=== PATIENT | female | born 1955 | race Hispanic/Latino ===

== ENCOUNTER 2018-08-05 09:32 | Outpatient (CLI) | payer OTHER ==
--- NOTE | 2018-08-05 13:03 | MRI ---
MRI OF THE LEFT KNEE WITHOUT CONTRAST: INDICATION: Internal derangement of the left knee radiographs dated 07/10/2018. FINDINGS: As seen on the comparison examination is moderate degenerative arthrosis involving the left knee pred ominantly affecting the medial femorotibial and patellofemoral compartments. There is a complex dege nerative tear involving the body and posterior horn of the medial meniscus with a predominantly horiz ontal component. There is partial extrusion of the medial meniscus. There is a disk with lateral me niscus without evidence of discrete tear. The ACL, PCL, MC, and LCLCL are intact. There are mild va ricosities involving the soft tissues of the lateral knee. No joint effusion or popliteal cyst is ev ident. The extensor mechanism is intact. IMPRESSION: 1. Mild to moderate osteoarthrosis of the left knee. 2. Medial meniscal tear. 3. Discoid lateral meniscus without evidence of tear. 4. Mildly prominent varicosities in the lateral aspect of the left knee. POS: OFF
== END 2018-08-05 09:33 | disposition home or self-care (01) ==
LOC: SCSMRI 09:32
PROVIDERS: ATTEND Family Medicine
DX: M23.92 Unspecified internal derangement of left knee (principal); M17.12 Unilateral primary osteoarthritis, left knee; S83.242A Other tear of medial meniscus, current injury, left knee, initial encounter; I83.92 Asymptomatic varicose veins of left lower extremity

== ENCOUNTER 2019-02-13 08:30 | Inpatient (IN) | payer OTHER ==
--- NOTE | 2019-02-19 18:46 | HP ---
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 She has had progressive problems despite rest, restriction of activities, anti-inflammatory medications, use of a brace, and injections. The pain is now interfering with day-to-day activities including walking, getting dressed, and sleeping. She has been unable to return to her previous level of employment. PAST MEDICAL HISTORY: The patient has history of diabetes. She was found on preoperative laboratory studies to have an asymptomatic urinary tract infections from E. coli that has been treated with Bactrim. ROUTINE MEDICATIONS: Include 1. Low-dose aspirin. 2. Magnesium. 3. Dicyclomine. 4. Multivitamins. 5. Metformin. 6. Glipizide. 7. Ozempic. 8. Pravastatin. 9. Meloxicam. ALLERGIES: SHE HAS NO KNOWN ALLERGIES. FAMILY HISTORY: Otherwise unremarkable. SOCIAL HISTORY: Otherwise unremarkable. REVIEW OF SYSTEMS: Otherwise unremarkable. PHYSICAL EXAMINATION: GENERAL: This is a healthy female. HEENT: Unremarkable. NECK: Supple. CHEST: Clear. HEART: Regular rate and rhythm. ABDOMEN: Soft, nontender. GENITAL: Deferred. BREASTS: Deferred. EXTREMITIES: Pertinent findings of the left knee, there is puffiness. No definite effusion. There are scattered venous varicosities. There is mild varus. There is tenderness and crepitus over the medial joint line. Range of motion is 0 to 70 degrees is painful. Neurovascular exam is intact. Distal pulses are 1+. There is a left antalgic gait with crutches. Previous x-rays reveal moderate DJD with minimal joint space remaining medially. MRI scan reveals DJD and degenerative medial meniscal tear. IMPRESSION: Degenerative arthritis, left knee. PLAN: Left total knee replacement. The nature of the surgery, length of recovery, and potential complications such as infection, loss of motion, incomplete relief, delayed wound healing, neurovascular injury, thromboembolic phenomena, possible transfusion, and need for revision have been discussed in detail. Job ID: [id number]
[2019-02-24] MEDS ORDERED: Sodium Chloride 0.9% 100 ML ONE (06:56)
[2019-02-24] MEDS ORDERED: Tranexamic Acid 1,000 MG/10 ML VIAL ONE ×2 (06:56→11:48)
[2019-02-24] MEDS ORDERED: Fentanyl 100 MCG/2 ML VIAL ONE ×5 (07:54→12:36)
[2019-02-24] MEDS ORDERED: Lidocaine 1% (PF) 30 ML VIAL ONE (07:54)
[2019-02-24] MEDS ORDERED: Midazolam HCl 2 mg/2 ml Vial ONE ×2 (07:54→09:49)
[2019-02-24] MEDS ORDERED: Ondansetron PF 4 MG/2 ML Vial ONE (08:12)
[2019-02-24] MEDS ORDERED: traMADol HCl 50 MG TAB PO PRN ×3 (08:34→14:06)
[2019-02-24] MEDS ORDERED: Promethazine HCl 25 MG/ML VIAL IM PRN ×2 (08:34→11:59)
[2019-02-24] MEDS ORDERED: Zolpidem Tartrate 5 MG TAB PO PRN ×2 (08:34→14:06)
[2019-02-24] MEDS ORDERED: Ropivacaine HCl/PF 250 ML in Premix Bag 1 BAG NERVE BLCK SCH (08:34)
[2019-02-24] MEDS ORDERED: HYDROcodone/Acetaminophen 10/325 mg Tablet PO PRN ×3 (08:34→14:06)
[2019-02-24] MEDS ORDERED: Fentanyl 100 MCG/2 ML VIAL IV PRN (08:37)
[2019-02-24] MEDS ORDERED: Bupivacaine/Epinephrine 0.25% 30 ML VIAL ONE (09:43)
[2019-02-24] MEDS ORDERED: Tranexamic Acid 1,000 MG in Sodium Chloride 0.9% 100 ML IVPB SCH ×2 (11:45→14:06)
[2019-02-24] MEDS ORDERED: Promethazine HCl 25 MG/ML VIAL SLOW IVP PRN ×2 (11:59→14:06)
[2019-02-24] MEDS ORDERED: Ondansetron HCl/PF 4 MG/2 ML Vial IVP PRN (11:59)
--- NOTE | 2019-02-24 12:14 | RAD ---
Radiograph right knee 2 views: HISTORY: 64-year-old female with osteoarthrosis of right knee. Status post surgery FINDINGS: Resurfacing changes of posterior aspect of patella, tibial plateau, and distal femur. Metallic prosth eses covered the distal femur and tibial plateau. Extensive subcutaneous gas, and gas in the joint, throughout the anterior portion of the knee and thigh. IMPRESSION: Very recently status post total right knee replacement arthroplasty.
--- NOTE | 2019-02-24 12:30 | OP ---
DATE OF PROCEDURE: 02/24/2019 CREATIVE SERVICES PRODUCER: Delfina Soto PA-C ANESTHESIA: General plus adductor canal and sciatic nerve blocks. PREOPERATIVE DIAGNOSIS: Degenerative arthritis, left knee. POSTOPERATIVE DIAGNOSIS: Degenerative arthritis, left knee. PROCEDURE PERFORMED: 1. Left total knee replacement with computer-assisted navigation with cemented [employer] Triathlon components (#2 femoral component, #2 primary tibial base plate with 9 mm CS plastic insert, and S27 all-plastic patellar component). DESCRIPTION OF PROCEDURE: After satisfactory anesthesia was induced in supine position, sequential compression device was placed on the nonoperative leg throughout the procedure. The left leg was then prepped and draped in routine sterile fashion. The leg was elevated and exsanguinated with an Esmarch bandage and the tourniquet inflated to 250 mmHg. A gently curved medial parapatellar incision was made, carried down to subcutaneous tissues and bleeding points controlled with Bovie cautery. Medial parapatellar arthrotomy was performed of the patella, this was carried laterally and portion of the fat pad were excised for exposure. There was marked degenerative arthritis of the knee, especially medially with large areas of exposed bone and significant degenerative changes of the patellofemoral joint. Meniscal remnants and osteophytes were removed. Using the [employer] pinless navigation system and the appropriate guides, the distal femoral and proximal tibial articular surfaces were excised with an oscillating saw to accept the trial components. It was felt that due to the #2 femoral component and #2 tibial base plate with 9 mm CS plastic insert gave appropriate size, fit, and stability. The patellar articular surface was excised to accept an all-plastic S27 patellar component. There was good range of motion and good patellar tracking. The trial components were removed. The knee was copiously irrigated with pulsatile lavage. The bony surfaces thoroughly cleaned and dried. The permanent components were then cemented in a single stage using one pack of cement premixed with 1 g of tobramycin powder. Excess cement was removed. There was again good fit and stability of the components. The knee was then again copiously irrigated. The skin was infiltrated with 30 mL of 0.25% Marcaine with epinephrine. The medial retinaculum and quadriceps mechanism were closed with interrupted #2 Vicryl and a running #2 Quill. Subcutaneous tissues were closed with running 0 Quill suture and the skin closed with running subcuticular 3-0 Monoderm and SurgiSeal skin adhesive. A sterile bulky compressive dressing was applied, and the tourniquet deflated after 65 minutes. The foot promptly pinked up. The patient had sequential compression device applied to the operative leg. She was awakened and taken to recovery room in stable condition. There were no apparent intraoperative complications. ESTIMATED BLOOD LOSS: Less than 100 mL. Job ID: [id number]
[2019-02-24] MEDS ORDERED: Promethazine HCl 25 MG/ML VIAL ONE (12:36)
[2019-02-24] MEDS ORDERED: Ketorolac Tromethamine 30 MG/ML VIAL IVP SCH (14:06)
[2019-02-24] MEDS ORDERED: Acetaminophen 325 MG TAB PO PRN (14:06)
[2019-02-24] MEDS ORDERED: Ondansetron PF 4 MG/2 ML Vial IVP PRN (14:06)
[2019-02-24] MEDS ORDERED: Fentanyl 100 MCG/2 ML VIAL SLOW IVP PRN ×2 (14:06)
[2019-02-24] MEDS ORDERED: diphenhydrAMINE 25 MG CAP PO PRN (14:06)
[2019-02-24 14:47] VITALS: BMI 25.9
[2019-02-24] MEDS ORDERED: Dextrose 5% in Water 1,000 ML IV PRN (15:26)
[2019-02-24] MEDS ORDERED: hydrALAZINE 20 MG/ML VIAL SLOW IVP PRN (15:26)
[2019-02-24] MEDS ORDERED: Dextrose 50% Abboject 50 ML SYRINGE SLOW IVP PRN (15:26)
[2019-02-24] MEDS: Ketorolac Tromethamine 30 MG/ML VIAL IVP SCH ×3 (15:29→23:11)
[2019-02-24] MEDS: Sodium Chloride 0.9% 1,000 ML IV SCH ×3 (15:30→23:12)
[2019-02-24] MEDS ORDERED: CEFAZOLIN 2 GM in Premix Bag 1 BAG IVPB SCH (16:00)
[2019-02-24] MEDS: metFORMIN XR 500 MG TAB PO SCH (17:24)
[2019-02-24] MEDS: CEFAZOLIN 2 GM in Premix Bag 1 BAG IVPB SCH (17:25)
[2019-02-24] MEDS ORDERED: Vancomycin HCl 1 GM in Premix Bag 1 BAG IVPB SCH ×2 (18:00→20:00)
--- NOTE | 2019-02-24 19:09 | CON ---
DATE OF CONSULTATION: PRIMARY CARE PROVIDER: Dr. Astrid Ronquillo. CHIEF COMPLAINT: Management of medical comorbidities. HISTORY OF PRESENT ILLNESS: Ms. Jacome is a pleasant 64-year-old lady, who was seen at [facility] on 02/24/2019, for management of medical comorbidities. The patient mainly speaks Kyrgyz. Family members were the translators for this clinical encounter. Ms. Jacome underwent left total knee replacement earlier today. She denies any chest pain or shortness of breath. She reports pain in the left lower extremity. She denies any nausea or vomiting. She denies any abdominal pain. She has no complaints other than pain in her left lower extremity at this time. REVIEW OF SYSTEMS: All other systems reviewed and found to be negative. PAST MEDICAL HISTORY: Diabetes mellitus type 2, gastroesophageal reflux disease, and dyslipidemia. PAST SURGICAL HISTORY: Left total knee replacement. FAMILY HISTORY: No family history of coronary artery disease. SOCIAL HISTORY: The patient denies tobacco use, alcohol use, or recreational drug use. ALLERGIES: NO KNOWN DRUG ALLERGIES. HOME MEDICATIONS: 1. Semaglutide 0.25 mg subcutaneously every 7 days. 2. Aspirin 81 mg at bedtime. 3. Glipizide 10 mg daily. 4. Metformin 500 mg 2 times a day. 5. Omeprazole 20 mg daily. 6. Pravastatin 20 mg at bedtime. 7. Tramadol p.r.n. PHYSICAL EXAMINATION: GENERAL: On examination, Ms. Jacome is awake and alert, not in acute distress. VITAL SIGNS: Blood pressure is 119/70, pulse 76, respiratory rate 20, and oxygen saturation 97% on room air. She is afebrile. EYES: No scleral icterus, no conjunctival pallor. ENT: Moist mucosal membranes. No oropharyngeal erythema or exudates. NECK: Supple, nontender, trachea is midline. RESPIRATORY: Accessory muscles of breathing are not active. Chest wall movements are symmetric bilaterally. Lungs are clear to auscultation without wheeze, rhonchi, or crepitations. CARDIOVASCULAR: S1 and S2 are heard, regular. Peripheral pulses palpable. No carotid bruit. No pericardial rub. ABDOMEN: Soft, nontender, bowel sounds are heard, no hepatomegaly, no splenomegaly. NEUROLOGIC: Cranial nerves 2 through 12 are intact. MUSCULOSKELETAL: Status post left knee surgery. The patient is able to move all 4 extremities. SKIN: No rashes or subcutaneous nodules. LYMPHATIC: No cervical lymphadenopathy. PSYCHIATRIC: Normal mood, normal affect. The patient is oriented to person, place, and time. LABORATORY DATA: Ms. Jacome's labs and investigations were reviewed. On 02/13, she had an unremarkable CBC and an unremarkable chem-7. Urinalysis was positive for moderate amount of leukocyte esterase. ASSESSMENT AND PLAN: Ms. Jacome is a pleasant 64-year-old lady, who was seen at [facility] on 02/24/2019. Her problem list includes: 1. Diabetes mellitus type 2: We will start her on Accu-Cheks and insulin sliding scale. We will adjust insulin dosing as needed. 2. Gastroesophageal reflux disease: Appears to be stable, continue omeprazole. 3. Dyslipidemia: Continue pravastatin. 4. We will add p.r.n. hydralazine for blood pressure spikes secondary to pain. Many thanks for allowing me to participate in your patient's care. Please feel free to contact me with any questions or concerns. LEVEL OF RISK: Moderate. LEVEL OF COMPLEXITY: Moderate. Job ID: [id number]
[2019-02-24] MEDS: Aspirin 81 mg Enteric Coated Tablet PO SCH (20:40)
[2019-02-24] MEDS: Atorvastatin Calcium 10 MG TAB PO SCH (20:40)
[2019-02-24] MEDS: HumaLOG 300 UNITS/3 ML VIAL SC PRN (21:25)
[2019-02-25] MEDS: CEFAZOLIN 2 GM in Premix Bag 1 BAG IVPB SCH (01:18)
[2019-02-25] MEDS ORDERED: Cepastat Lozenges 1 LOZ PO PRN (03:01)
[2019-02-25 04:11] LABS: Hemoglobin 11.3 g/dL (12.0-16.0); Mean Corpuscular HGB CONC 33.3 g/dL (32.0-36.0); Mean Corpuscular Hemoglobin 28.4 pg (27.0-31.0); Mean Platelet Volume 8.2 fL (7.4-10.4); Platelet Count 209 thou/uL (130-400); RBC Distribution Width 11.6 % (11.5-14.5); Red Blood Cell (RBC) Count 3.99 mill/uL (4.20-5.40); White Blood Cell (WBC) Count 9.6 thou/uL (4.8-10.8)
[2019-02-25] MEDS: Ketorolac Tromethamine 30 MG/ML VIAL IVP SCH ×4 (06:09→23:52)
[2019-02-25] MEDS: metFORMIN XR 500 MG TAB PO SCH ×2 (08:20→18:03)
[2019-02-25] MEDS: glipiZIDE 5 MG TAB PO SCH (08:20)
[2019-02-25] MEDS: HYDROcodone/Acetaminophen 10/325 mg Tablet PO PRN ×2 (08:24→21:31)
[2019-02-25] MEDS: Aspirin 81 mg Enteric Coated Tablet PO SCH ×2 (08:26→21:22)
[2019-02-25] MEDS: Multivitamin W/ Minerals 1 TAB PO SCH (08:27)
[2019-02-25] MEDS: Senokot S 8.6-50 MG TAB PO SCH ×2 (08:28→21:22)
[2019-02-25] MEDS: Sodium Chloride 0.9% 1,000 ML IV SCH ×2 (11:09→20:25)
[2019-02-25] MEDS: Ondansetron PF 4 MG/2 ML Vial IVP PRN (12:59)
--- NOTE | 2019-02-25 17:43 | PDOC.PN ---
- Subjective Encounter Start Date: 02/25/19 Encounter Start Time: 09:00 Pt seen for followup re: DM2. No complaints today, feels well. - Objective MAR Reviewed: Yes Vital Signs & Weight: Vital Signs (12 hours) Temp Pulse Resp BP BP Pulse Ox 02/25/19 15:40 98.1 F 82 14 124/70 92 L 02/25/19 12:30 98.2 F 89 16 118/71 94 L 02/25/19 08:00 93 L 02/25/19 07:27 98.8 F 100 16 111/67 93 L Weight Admit Weight 142 lb Weight 142 lb I&O: 02/24/19 02/25/19 02/26/19 06:59 06:59 06:59 Intake Total 3302 Output Total 2750 Balance 552 Result Diagrams: 02/25/19 03:55 Additional Labs: Accuchecks 02/25/19 02/25/19 02/25/19 15:53 11:37 06:00 POC Glucose 192 H 129 H 130 H 02/24/19 20:29 POC Glucose 174 H labs reviewed by me Phys Exam - Physical Examination Constitutional: NAD HEENT: moist MMs Neck: supple Respiratory: clear to auscultation bilateral Cardiovascular: RRR Gastrointestinal: soft s/p R knee surgery Neurological: moves all 4 limbs Psychiatric: normal affect Dx/Plan (1) DM2 (diabetes mellitus, type 2) Status: Chronic Comment: reasonable control, continue semaglutide, metformin, accuchecks and insulin sliding scale. (2) GERD (gastroesophageal reflux disease) Code(s): K21.9 - GASTRO-ESOPHAGEAL REFLUX DISEASE WITHOUT ESOPHAGITIS Status: Chronic Comment: stable, continue omeprazole (3) Dyslipidemia Code(s): E78.5 - HYPERLIPIDEMIA, UNSPECIFIED Status: Chronic Comment: stable , continue pravastatin - Plan * . Review of Systems - Review of Systems Respiratory: negative: Cough, Shortness of Breath, SOB with Excertion, Pleuritic Pain, Wheezing Cardiovascular: negative: chest pain, palpitations, orthopnea, paroxysmal nocturnal dyspnea, edema, light headedness - Medications/Allergies Allergies/Adverse Reactions: Allergies Allergy/AdvReac Type Severity Reaction Status Date / Time No Known Allergies Allergy Verified 02/13/19 09:20 Medications: Current Medications Acetaminophen (Tylenol) 650 mg PO Q4H PRN PRN Reason: Headache/Fever or Pain Hydrocodone Bitart/Acetaminophen ([place] 10/325) 1 tab PO Q4H PRN PRN Reason: Pain (1-3) Hydrocodone Bitart/Acetaminophen ([place] 10/325) 2 tab PO Q4H PRN PRN Reason: PAIN (4-6) Last Admin: 02/25/19 08:24 Dose: 2 tab Aspirin (Ecotrin) 81 mg PO BID [facility] Last Admin: 02/25/19 08:26 Dose: 81 mg Atorvastatin Calcium (Lipitor) 10 mg PO HS [facility] Last Admin: 02/24/19 20:40 Dose: 10 mg Dextrose/Water (Dextrose 50%) 25 gm SLOW IVP PRN PRN PRN Reason: Hypoglycemia Diphenhydramine HCl (Benadryl) 25 mg PO Q6H PRN PRN Reason: Itching Fentanyl (Sublimaze) 50 mcg IV Q1H PRN PRN Reason: Breakthrough Pain Last Admin: 02/24/19 15:24 Dose: 50 mcg Glipizide (Glucotrol) 10 mg PO DAILY-AC [facility] Last Admin: 02/25/19 08:20 Dose: 10 mg Glucagon (Glucagon) 1 mg IM PRN PRN PRN Reason: Hypoglycemia Hydralazine HCl (Apresoline) 10 mg SLOW IVP Q6H PRN PRN Reason: SBP Greater Than 170 Ropivacaine 250 ml/ Device 250 mls @ 0 mls/hr NERVE BLCK INF [facility] Last Admin: 02/25/19 12:54 Dose: 250 mls Sodium Chloride (Normal Saline 0.9%) 1,000 mls @ 100 mls/hr IV .Q10H [facility] Last Admin: 02/25/19 11:09 Dose: Not Given Dextrose/Water (D5w) 1,000 mls @ 0 mls/hr IV .Q0M PRN PRN Reason: Hypoglycemia Insulin Human Lispro (Humalog) 0 units SC .MILD SLIDING SCALE PRN PRN Reason: Mild Correctional Scale Last Admin: 02/24/19 21:25 Dose: 2 unit Iron/Minerals/Multivitamins (Theragran M) 1 tab PO DAILY [facility] Last Admin: 02/25/19 08:27 Dose: 1 tab Ketorolac Tromethamine (Toradol) 30 mg IVP Q6HR [facility] Stop: 02/26/19 06:01 Last Admin: 02/25/19 11:51 Dose: 30 mg Metformin HCl (Glucophage Xr) 500 mg PO BID-[facility] Last Admin: 02/25/19 08:20 Dose: 500 mg (Semaglutide [ (Ozempic] 0.25 Mg)) 0.25 mg SQ .Q7DAYS [facility] Ondansetron HCl (Zofran) 4 mg IVP Q6H PRN PRN Reason: Nausea/Vomiting Last Admin: 02/25/19 12:59 Dose: 4 mg Pantoprazole Sodium (Protonix) 40 mg PO DAILY [facility] Last Admin: 02/25/19 08:27 Dose: 40 mg Promethazine HCl (Phenergan) 12.5 mg IM Q4H PRN PRN Reason: Nausea Senna/Docusate Sodium (Senokot S) 2 tab PO BID [facility] Last Admin: 02/25/19 08:28 Dose: 2 tab Sodium Chloride (Flush - Normal Saline) 10 ml IVF PRN PRN PRN Reason: Saline Flush Last Admin: 02/25/19 13:00 Dose: 10 ml Throat Lozenges (Cepastat Lozenges) 1 nichole PO Q2H PRN PRN Reason: Sore Throat Last Admin: 02/25/19 08:29 Dose: 1 nichole Tramadol HCl (Ultram) 50 mg PO Q6H PRN PRN Reason: Mild Pain (1-3) Tramadol HCl (Ultram) 100 mg PO Q6H PRN PRN Reason: Moderate Pain 4-6 Zolpidem Tartrate (Ambien) 5 mg PO HSPRN PRN PRN Reason: Insomnia
[2019-02-25] MEDS: HumaLOG 300 UNITS/3 ML VIAL SC PRN ×2 (18:15→21:26)
[2019-02-25] MEDS: Atorvastatin Calcium 10 MG TAB PO SCH (21:22)
[2019-02-26] MEDS: Ketorolac Tromethamine 30 MG/ML VIAL IVP SCH (06:14)
[2019-02-26] MEDS: HumaLOG 300 UNITS/3 ML VIAL SC PRN ×2 (06:18→12:16)
[2019-02-26] MEDS: Sodium Chloride 0.9% 1,000 ML IV SCH (06:25)
[2019-02-26] MEDS ORDERED: Acetaminophen 500 MG TAB PO SCH (08:00)
[2019-02-26] MEDS: Ondansetron PF 4 MG/2 ML Vial IVP PRN (08:05)
[2019-02-26] MEDS: glipiZIDE 5 MG TAB PO SCH (08:22)
[2019-02-26] MEDS: Aspirin 81 mg Enteric Coated Tablet PO SCH (09:17)
[2019-02-26] MEDS: metFORMIN XR 500 MG TAB PO SCH (09:17)
[2019-02-26] MEDS: Senokot S 8.6-50 MG TAB PO SCH (09:17)
[2019-02-26] MEDS: Multivitamin W/ Minerals 1 TAB PO SCH (09:25)
[2019-02-26 11:32] VITALS: BP 145/80; TEMP 98.5
--- NOTE | 2019-02-26 13:05 | PDOC.PN ---
- Subjective Encounter Start Date: 02/26/19 Encounter Start Time: 08:00 Subjective: knee pain is better -: amb well yesterday with PT -: at bedside, no chest pain or sob - Objective MAR Reviewed: Yes Vital Signs & Weight: Vital Signs (12 hours) Temp Pulse Resp BP BP Pulse Ox 02/26/19 11:30 98.5 F 91 20 145/80 H 97 02/26/19 09:05 93 L 02/26/19 07:30 98.3 F 92 16 106/67 93 L 02/26/19 04:00 98.6 F 100 16 107/69 93 L Weight Admit Weight 142 lb Weight 142 lb I&O: 02/25/19 02/26/19 02/27/19 06:59 06:59 06:59 Intake Total 3302 1492 Output Total 2750 2450 Balance 552 -368 Result Diagrams: 02/25/19 03:55 Additional Labs: Accuchecks 02/26/19 02/25/19 02/25/19 10:57 20:21 15:53 POC Glucose 212 H 186 H 192 H Phys Exam - Physical Examination HEENT: PERRLA, moist MMs Neck: no JVD, supple Respiratory: no wheezing, no rales Cardiovascular: RRR, no significant murmur Gastrointestinal: soft, non-tender, positive bowel sounds Musculoskeletal: pulses present left knee surgical site in dressing, post op changes around knee Neurological: non-focal, moves all 4 limbs Psychiatric: normal affect, A&O x 3 Dx/Plan (1) Status post total knee replacement, left Code(s): Z96.652 - PRESENCE OF LEFT ARTIFICIAL KNEE JOINT Status: Acute (2) DM2 (diabetes mellitus, type 2) Status: Chronic Qualifiers: Diabetes mellitus intermediate card tender insulin use: without intermediate card tender use Diabetes mellitus complication status: without complication Qualified Code(s): E11.9 - Type 2 diabetes mellitus without complications (3) Dyslipidemia Code(s): E78.5 - HYPERLIPIDEMIA, UNSPECIFIED Status: Chronic Comment: stable , continue pravastatin (4) GERD (gastroesophageal reflux disease) Code(s): K21.9 - GASTRO-ESOPHAGEAL REFLUX DISEASE WITHOUT ESOPHAGITIS Status: Chronic Comment: stable, continue omeprazole - Plan hemostable -: on asp bid, metformin, glipizide, lipitor -: likely will go home today per ortho adv -: is doing well post op * . Review of Systems - Medications/Allergies Allergies/Adverse Reactions: Allergies Allergy/AdvReac Type Severity Reaction Status Date / Time No Known Allergies Allergy Verified 02/13/19 09:20 Medications: Current Medications Acetaminophen (Tylenol) 1,000 mg PO Q6H [facility] Last Admin: 02/26/19 09:25 Dose: 1,000 mg Hydrocodone Bitart/Acetaminophen ([place] 10/325) 1 tab PO Q4H PRN PRN Reason: Pain (1-3) Hydrocodone Bitart/Acetaminophen ([place] 10/325) 2 tab PO Q4H PRN PRN Reason: PAIN (4-6) Last Admin: 02/25/19 21:31 Dose: 2 tab Aspirin (Ecotrin) 81 mg PO BID [facility] Last Admin: 02/26/19 09:17 Dose: 81 mg Atorvastatin Calcium (Lipitor) 10 mg PO HS [facility] Last Admin: 02/25/19 21:22 Dose: 10 mg Dextrose/Water (Dextrose 50%) 25 gm SLOW IVP PRN PRN PRN Reason: Hypoglycemia Diphenhydramine HCl (Benadryl) 25 mg PO Q6H PRN PRN Reason: Itching Fentanyl (Sublimaze) 50 mcg IV Q1H PRN PRN Reason: Breakthrough Pain Last Admin: 02/24/19 15:24 Dose: 50 mcg Glipizide (Glucotrol) 10 mg PO DAILY-AC [facility] Last Admin: 02/26/19 08:22 Dose: 10 mg Glucagon (Glucagon) 1 mg IM PRN PRN PRN Reason: Hypoglycemia Hydralazine HCl (Apresoline) 10 mg SLOW IVP Q6H PRN PRN Reason: SBP Greater Than 170 Ropivacaine 250 ml/ Device 250 mls @ 0 mls/hr NERVE BLCK INF [facility] Last Admin: 02/25/19 12:54 Dose: 250 mls Sodium Chloride (Normal Saline 0.9%) 1,000 mls @ 100 mls/hr IV .Q10H [facility] Last Admin: 02/26/19 06:25 Dose: Not Given Dextrose/Water (D5w) 1,000 mls @ 0 mls/hr IV .Q0M PRN PRN Reason: Hypoglycemia Insulin Human Lispro (Humalog) 0 units SC .MILD SLIDING SCALE PRN PRN Reason: Mild Correctional Scale Last Admin: 02/26/19 12:16 Dose: 3 unit Iron/Minerals/Multivitamins (Theragran M) 1 tab PO DAILY [facility] Last Admin: 02/26/19 09:25 Dose: 1 tab Metformin HCl (Glucophage Xr) 500 mg PO BID-[facility] Last Admin: 02/26/19 09:17 Dose: 500 mg (Semaglutide [ (Ozempic] 0.25 Mg)) 0.25 mg SQ .Q7DAYS [facility] Ondansetron HCl (Zofran) 4 mg IVP Q6H PRN PRN Reason: Nausea/Vomiting Last Admin: 02/26/19 08:05 Dose: 4 mg Pantoprazole Sodium (Protonix) 40 mg PO DAILY [facility] Last Admin: 02/26/19 09:17 Dose: 40 mg Promethazine HCl (Phenergan) 12.5 mg IM Q4H PRN PRN Reason: Nausea Senna/Docusate Sodium (Senokot S) 2 tab PO BID [facility] Last Admin: 02/26/19 09:17 Dose: 2 tab Sodium Chloride (Flush - Normal Saline) 10 ml IVF PRN PRN PRN Reason: Saline Flush Last Admin: 02/26/19 06:14 Dose: 10 ml Throat Lozenges (Cepastat Lozenges) 1 nichole PO Q2H PRN PRN Reason: Sore Throat Last Admin: 02/25/19 08:29 Dose: 1 nichole Tramadol HCl (Ultram) 50 mg PO Q6H PRN PRN Reason: Mild Pain (1-3) Tramadol HCl (Ultram) 100 mg PO Q6H PRN PRN Reason: Moderate Pain 4-6 Zolpidem Tartrate (Ambien) 5 mg PO HSPRN PRN PRN Reason: Insomnia
--- NOTE | 2019-02-27 15:56 | DIS ---
DATE OF ADMISSION: 02/24/2019 DATE OF DISCHARGE: 02/26/2019 DISCHARGE DISPOSITION: Home. PRIMARY DISCHARGE DIAGNOSIS: The patient is status post left total knee replacement, done by Dr. Edge. SECONDARY DISCHARGE DIAGNOSES: 1. Diabetes mellitus, type 2. 2. Dyslipidemia. 3. Gastroesophageal reflux disease. PROCEDURES DONE DURING HOSPITALIZATION: The patient had left total knee replacement done by Dr. Edge on 02/24/2019. Hemoglobin and hematocrit were 11 and 34 on the . DISCHARGE MEDICATIONS: 1. Glipizide 10 mg daily. 2. Metformin extended release 500 mg twice daily. 3. Omeprazole 20 mg daily. 4. Pravastatin 20 mg p.o. at bedtime. 5. Semaglutide 0.25 mg subcu once weekly. 6. Ultram p.r.n. for pain. 7. Aspirin 81 mg p.o. twice daily. ALLERGIES: NO KNOWN DRUG ALLERGIES. DISCHARGE PLAN: The patient to follow up with Dr. Edge as advised and primary care physician in 1 week. BRIEF COURSE DURING HOSPITALIZATION: The patient initially got electively admitted for left total knee replacement. This was done by Dr. Alexander Edge on the . Postop, [facility] physicians were consulted for comanagement on comanagement of medical issues. Postop, the patient has remained hemodynamically stable. She has ambulated nearly 300 feet or more with Physical Therapy postop. She is hemodynamically stable and has been cleared for discharge by Dr. Edge. She needs to follow up with Dr. Edge as advised and primary care physician in 1 week. The patient needs to continue all her home medications as before. Please see a [id number] documentation for the day of discharge on [place]. Job ID: [id number]
== END 2019-02-26 15:35 | disposition home or self-care (01) | DRG 470 ==
LOC: SURG A 02-24 06:36 → SJJU 02-24 13:44
PROVIDERS: ADMIT Orthopaedic Surgery; ATTEND Orthopaedic Surgery
PROC: 0SRD0J9 Replacement of Left Knee Joint with Synthetic Substitute, Cemented, Open Approach (ICD-10-PCS; principal; 2019-02-24)
DX: M17.12 Unilateral primary osteoarthritis, left knee (principal); E11.9 Type 2 diabetes mellitus without complications; K21.9 Gastro-esophageal reflux disease without esophagitis; E78.5 Hyperlipidemia, unspecified; Z79.84 Long term (current) use of oral hypoglycemic drugs; Z79.82 Long term (current) use of aspirin; Z79.899 Other long term (current) drug therapy
CPT/HCPCS: 36415; 36416; 85027; 86850; 86900; 86901; C1713; C1776; J0690; J1885; J2001; J2250; J2405; J2550; J2795; J3010; J3370; J3490

== ENCOUNTER 2019-02-13 09:06 | Outpatient (CLI) | payer OTHER ==
--- NOTE | 2019-02-13 12:37 | RAD ---
EXAM: Chest 2 views: HISTORY: Preoperative radiograph COMPARISON: None. FINDINGS: There is a normal-sized cardiomediastinal silhouette. Atherosclerotic calcifications are seen in the aorta. There is no evidence of consolidation, mass, or pleural effusion. The bones are unremarkable. IMPRESSION: No evidence of acute cardiopulmonary disease
[2019-02-13 12:51] LABS: #Eosinphils 0.2 thou/uL (0.0-0.7); #Lymphocytes 2.1 thou/uL (1.20-3.40); #Monocytes 0.6 thou/uL (0.11-0.59); #Neutrophils 4.7 thou/uL (1.40-6.50); %Basophils 0.6 % (0.0-1.0); %Eosinophils 2.8 % (0.0-10.0); %Lymphocytes 27.8 % (21.0-51.0); %Monocytes 7.3 % (0.0-10.0); %Neutrophils 61.4 % (42.0-75.0); Hemoglobin 13.8 g/dL (12.0-16.0); Mean Corpuscular Hemoglobin 28.3 pg (27.0-31.0); Mean Corpuscular Volume 85.9 fL (78.0-98.0); Mean Platelet Volume 8.8 fL (7.4-10.4); Platelet Count 245 thou/uL (130-400); RBC Distribution Width 11.6 % (11.5-14.5); Red Blood Cell (RBC) Count 4.88 mill/uL (4.20-5.40); White Blood Cell (WBC) Count 7.6 thou/uL (4.8-10.8)
[2019-02-13 13:14] LABS: Anion Gap 13 mmol/L (10-20); BUN (Urea Nitrogen) 13 mg/dL (9.8-20.1); Calc. Creatinine Clearance 0 mL/min (70-130); Calcium 9.9 mg/dL (7.8-10.44); Carbon Dioxide 28 mmol/L (23-31); Chloride 102 mmol/L (98-107); Estimated GFR-MDRD 80; Glucose 108 mg/dL (80-115); Sodium 139 mmol/L (136-145)
[2019-02-13 13:36] LABS: Bilirubin Negative (Negative); Blood, Urine Negative (Negative); Clarity CLOUDY (Clear); Glucose, Urine (Dipstick) Negative (Negative); Leukocyte Moderate (Negative); Nitrite Negative (Negative); Protein, Urine (Dipstick) Negative (Neg-Trace); Specific Gravity, Urine 1.015 (1.002-1.036); Urobilinogen 0.2 mg/dL (0.2-1.0); pH, Urine 7.5 (5.0-9.0)
[2019-02-13 14:05] LABS: RBC/HPF 0-3 HPF (0-3); WBC/HPF 21-50 HPF (0-3)
[2019-02-13 14:06] LABS: Bacteria/HPF 4+ HPF (None Seen); Hyaline Casts/LPF NONE SEEN LPF (0-3 Hyaline); Squamous Epithelial 0-3 HPF (0-3); Transitional Epithelial 0-3 HPF (0-3)
== END 2019-02-13 09:07 | disposition home or self-care (01) ==
LOC: LABBT 09:06
PROVIDERS: ATTEND Orthopaedic Surgery
DX: Z01.818 Encounter for other preprocedural examination (principal); M17.12 Unilateral primary osteoarthritis, left knee
CPT/HCPCS: 71046; 80048; 81001; 85025; 87077; 87081; 87086; 87186

== ENCOUNTER 2019-04-08 09:38 | Outpatient (CLI) | payer OTHER ==
--- NOTE | 2019-04-09 13:40 | MMO ---
Bilateral MAMMO Bilat Screen DDI. CLINICAL HISTORY: Patient is 64 years old and is seen for screening. The patient has no family history of breast cancer. The patient has no personal history of cancer. VIEWS: The views performed were: bilateral craniocaudal and bilateral mediolateral oblique. FILMS COMPARED: The present examination has been compared to a prior imaging study performed at [facility] on 09/12/2016. This study has been interpreted with the assistance of computer-aided detection. MAMMOGRAM FINDINGS: There are scattered fibroglandular densities. There are no suspicious masses, suspicious calcifications, or new areas of architectural distortion. IMPRESSION: THERE IS NO MAMMOGRAPHIC EVIDENCE OF MALIGNANCY. A ROUTINE FOLLOW-UP MAMMOGRAM IN 1 YEAR IS RECOMMENDED. ACR BI-RADS Category 1 - Negative MAMMOGRAPHY NOTE: 1. A negative mammogram report should not delay a biopsy if a dominant of clinically suspicious mass is present. 2. Approximately 10% to 15% of breast cancers are not detected by mammography. 3. Adenosis and dense breasts may obscure an underlying neoplasm. Reported by: AMBER OTOOLE MD Electonically Signed: [id number]
== END 2019-04-08 09:39 | disposition home or self-care (01) ==
LOC: SCSMAMMO 09:38
PROVIDERS: ATTEND Physician Assistant Medical
DX: Z12.31 Encounter for screening mammogram for malignant neoplasm of breast (principal)
CPT/HCPCS: 77067

== ENCOUNTER 2019-08-22 12:21 | Outpatient (CLI) | payer OTHER ==
--- NOTE | 2019-08-22 12:55 | RAD ---
EXAM: Chest 2 views: HISTORY: Cough and congestion COMPARISON: 02/13/2019 FINDINGS: There is a normal-sized cardiomediastinal silhouette. Atherosclerotic calcifications are seen in the aorta. There is no evidence of consolidation, mass, or pleural effusion. The bones are unremarkable. IMPRESSION: No evidence of acute cardiopulmonary disease
== END 2019-08-22 12:22 | disposition home or self-care (01) ==
LOC: SCSRAD 12:21
PROVIDERS: ATTEND Physician Assistant Medical
DX: J40 Bronchitis, not specified as acute or chronic (principal)
CPT/HCPCS: 71046

== ENCOUNTER 2020-01-22 12:17 | Outpatient (CLI) | payer OTHER ==
--- NOTE | 2020-01-22 13:02 | RAD ---
RADIOGRAPH CHEST AND LEFT RIBS 5 VIEW: DATE: 01/22/2020 HISTORY: 65-year-old female with left chest pain FINDINGS: The visualized lung alba are clear. The cardiomediastinal silhouette and hilar shadows are normal. The lateral costophrenic angles are sharp. There is no evidence of left rib fracture or destructive osseous rib lesion. There is no pneumothorax. IMPRESSION: Negative.
== END 2020-01-22 12:18 | disposition home or self-care (01) ==
LOC: SCSRAD 12:17
PROVIDERS: ATTEND Physician Assistant Medical
DX: R07.89 Other chest pain (principal)

== ENCOUNTER 2025-08-20 12:46 | Outpatient (CLI) | payer OTHER | END 2025-08-20 12:47 | disposition home or self-care (01) | LOC: SCSBT 12:46 | PROVIDERS: ATTEND Student in an Organized Health Care Education/Training Program | DX: Z13.820 Encounter for screening for osteoporosis (principal); Z78.0 Asymptomatic menopausal state; M85.89 Other specified disorders of bone density and structure, multiple sites | CPT/HCPCS: 77080 ==